=== PATIENT | female | born 1940 | race Two or more races ===

== ENCOUNTER 2017-05-09 22:39 | Emergency (ER) | payer OTHER ==
[~2017-05-09] VITALS: Ht 160 cm; Wt 52.6 kg
[~2017-05-09 22:39] MED LIST: CLONAZEPAM0.25 MG; OMEPRAZOLE20 MG
[2017-05-10] MEDS ORDERED: CIPRO500 MG PO (00:44)
[2017-05-10] MEDS ORDERED: URIN D.S. TABL1 EACH PO (00:45)
== END 2017-05-10 00:58 | disposition home or self-care (01) ==
LOC: ER 22:39
DX: N39.0 Urinary tract infection, site not specified (principal)

== ENCOUNTER 2017-11-20 12:12 | Outpatient (CLI) | payer OTHER ==
[~2017-11-20 12:12] MED LIST changes: +CIPRO500 MG PO; +URIN D.S. TABL1 EACH PO
== END 2017-11-20 14:07 | disposition home or self-care (01) ==
LOC: MAMO-SONO 12:12
DX: C50.411 Malignant neoplasm of upper-outer quadrant of right female breast (principal); N60.11 Diffuse cystic mastopathy of right breast; N60.12 Diffuse cystic mastopathy of left breast

== ENCOUNTER 2018-02-26 12:57 | Outpatient (CLI) | payer OTHER | END 2018-02-26 13:00 | disposition home or self-care (01) | LOC: SONOGRAMA 12:57 | DX: R05 Cough (principal); R31.21 Asymptomatic microscopic hematuria ==

== ENCOUNTER 2018-03-03 10:34 | Outpatient (CLI) | payer OTHER ==
[2018-03-09] MEDS ORDERED: PRILOSEC OTC20 MG PO (09:21)
== END 2018-03-03 10:47 | disposition home or self-care (01) ==
LOC: RAD 10:34
DX: R07.89 Other chest pain (principal)

== ENCOUNTER 2018-03-04 09:32 | Outpatient (CLI) | payer OTHER ==
[2018-03-09] MEDS ORDERED: PRILOSEC OTC20 MG PO (09:21)
== END 2018-03-04 09:41 | disposition home or self-care (01) ==
LOC: EKG 09:32
DX: I10 Essential (primary) hypertension (principal)

== ENCOUNTER 2018-03-10 08:44 | Day surgery (SDC) | payer OTHER ==
[~2018-03-10 08:44] MED LIST changes: +PRILOSEC OTC20 MG PO
== END 2018-03-10 16:15 | disposition home or self-care (01) ==
LOC: CIR.AMB 08:44
DX: R93.89 Abnormal findings on diagnostic imaging of other specified body structures (principal)

== ENCOUNTER 2018-11-25 10:20 | Outpatient (CLI) | payer OTHER | END 2018-11-25 10:24 | disposition home or self-care (01) | LOC: MAMO-SONO 10:20 | DX: C50.411 Malignant neoplasm of upper-outer quadrant of right female breast (principal); N60.11 Diffuse cystic mastopathy of right breast; N60.12 Diffuse cystic mastopathy of left breast ==

== ENCOUNTER 2019-03-18 09:34 | Outpatient (CLI) | payer OTHER | END 2019-03-18 09:35 | disposition home or self-care (01) | LOC: SONOGRAMA 09:34 → MAMO-SONO 10:15 | DX: R31.21 Asymptomatic microscopic hematuria (principal) ==

== ENCOUNTER 2019-11-30 07:40 | Outpatient (CLI) | payer OTHER | END 2019-11-30 07:51 | disposition home or self-care (01) | LOC: MAMO-SONO 07:40 | PROVIDERS: ATTEND Surgery | DX: N60.11 Diffuse cystic mastopathy of right breast (principal); N60.12 Diffuse cystic mastopathy of left breast; C50.411 Malignant neoplasm of upper-outer quadrant of right female breast; N64.59 Other signs and symptoms in breast ==

== ENCOUNTER 2019-12-05 08:25 | Outpatient (CLI) | payer OTHER | END 2019-12-05 10:49 | disposition home or self-care (01) | LOC: MAMO-SONO 08:25 | PROVIDERS: ATTEND Specialist | DX: N28.1 Cyst of kidney, acquired (principal) ==

== ENCOUNTER → 2020-05-25 10:54 | Outpatient (CLI) | payer OTHER | END | disposition home or self-care (01) | LOC: LAB 10:54 | PROVIDERS: ATTEND Radiology Diagnostic Radiology | DX: N20.0 Calculus of kidney (principal) ==

== ENCOUNTER 2020-06-06 08:44 | Outpatient (CLI) | payer OTHER | END 2020-06-06 09:01 | disposition home or self-care (01) | LOC: MRI 08:44 | PROVIDERS: ATTEND Urology | DX: N28.1 Cyst of kidney, acquired (principal); R31.21 Asymptomatic microscopic hematuria; R31.0 Gross hematuria | CPT/HCPCS: 72196; 74182; A9575; 72197; 74183 ==

== ENCOUNTER 2020-12-05 09:04 | Outpatient (CLI) | payer OTHER | END 2020-12-05 09:36 | disposition home or self-care (01) | LOC: MAMO-SONO 09:04 | PROVIDERS: ATTEND Surgery | DX: R92.1 Mammographic calcification found on diagnostic imaging of breast (principal); N60.11 Diffuse cystic mastopathy of right breast; N60.12 Diffuse cystic mastopathy of left breast; C50.411 Malignant neoplasm of upper-outer quadrant of right female breast ==

== ENCOUNTER 2021-08-01 08:13 | Outpatient (CLI) | payer OTHER | END 2021-08-01 08:19 | disposition home or self-care (01) | LOC: SONOGRAMA 08:13 | PROVIDERS: ATTEND Urology | DX: R31.21 Asymptomatic microscopic hematuria (principal) ==

== ENCOUNTER → 2021-09-24 06:24 | Outpatient (CLI) | payer OTHER | END | disposition home or self-care (01) | LOC: LAB 06:24 | PROVIDERS: ATTEND Otolaryngology | DX: R22.1 Localized swelling, mass and lump, neck (principal) ==

== ENCOUNTER 2021-09-26 07:59 | Outpatient (CLI) | payer OTHER | END 2021-09-26 08:09 | disposition home or self-care (01) | LOC: TOM 07:59 | PROVIDERS: ATTEND Otolaryngology | DX: R22.1 Localized swelling, mass and lump, neck (principal) | CPT/HCPCS: 70491; Q9965 ==

== ENCOUNTER 2021-10-24 17:26 | Outpatient (CLI) | payer OTHER | END 2021-10-24 17:28 | disposition home or self-care (01) | LOC: SONOGRAMA 17:26 | PROVIDERS: ATTEND Pathology Anatomic Pathology & Clinical Pathology | DX: R59.0 Localized enlarged lymph nodes (principal) ==

== ENCOUNTER 2021-12-19 11:38 | Outpatient (CLI) | payer OTHER | END 2021-12-19 11:46 | disposition home or self-care (01) | LOC: SONOGRAMA 11:38 | DX: R59.0 Localized enlarged lymph nodes (principal) ==

== ENCOUNTER 2021-12-25 10:28 | Outpatient (CLI) | payer OTHER | END 2021-12-25 10:30 | disposition home or self-care (01) | LOC: RAD 10:28 | PROVIDERS: ATTEND General Practice | DX: K59.00 Constipation, unspecified (principal) ==

== ENCOUNTER 2022-01-01 09:17 | Outpatient (CLI) | payer OTHER | END 2022-01-01 09:24 | disposition home or self-care (01) | LOC: MAMO-SONO 09:17 | PROVIDERS: ATTEND Surgery | DX: C50.411 Malignant neoplasm of upper-outer quadrant of right female breast (principal); N60.12 Diffuse cystic mastopathy of left breast; N60.11 Diffuse cystic mastopathy of right breast ==

== ENCOUNTER 2022-02-13 06:50 | Day surgery (SDC) | payer OTHER ==
[~2022-02-13 06:50] MED LIST changes: +CLORAZEPATE D3.75 MG PO
== END 2022-02-13 14:50 | disposition home or self-care (01) ==
LOC: CIR.AMB 06:50
PROVIDERS: ATTEND Specialist
DX: C83.30 Diffuse large B-cell lymphoma, unspecified site (principal); Z20.822 Contact with and (suspected) exposure to COVID-19

== ENCOUNTER 2023-07-01 09:52 | Outpatient (CLI) | payer OTHER | END 2023-07-01 10:15 | disposition home or self-care (01) | LOC: MAMO-SONO 09:52 | PROVIDERS: ATTEND Surgery | DX: N60.11 Diffuse cystic mastopathy of right breast (principal); N60.12 Diffuse cystic mastopathy of left breast; C50.411 Malignant neoplasm of upper-outer quadrant of right female breast ==

== ENCOUNTER 2023-07-07 08:42 | Outpatient (CLI) | payer OTHER | END 2023-07-07 08:45 | disposition home or self-care (01) | LOC: SONOGRAMA 08:42 | PROVIDERS: ATTEND Urology | DX: R31.21 Asymptomatic microscopic hematuria (principal); R33.9 Retention of urine, unspecified ==

== ENCOUNTER 2023-11-15 17:49 | Emergency (ER) | payer OTHER ==
[~2023-11-15] VITALS: Ht 160 cm; Wt 49.0 kg
[2023-11-15] MEDS ORDERED: NEURONTIN600 M1 PO (18:08)
[2023-11-15] MEDS ORDERED: KETOROLAC TROMETHAMINE 30 MG VIAL IM ONE (18:45)
[2023-11-15] MEDS ORDERED: KETOROLAC TROMETHAMINE 30 MG VIAL ONE (19:00)
[2023-11-15] MEDS ORDERED: KETO10TA2 PO (20:31)
== END 2023-11-15 20:59 | disposition home or self-care (01) ==
LOC: ER 17:51
DX: S42.392A Other fracture of shaft of left humerus, initial encounter for closed fracture (principal); W19.XXXA Unspecified fall, initial encounter; Y93.89 Activity, other specified; Y92.488 Other paved roadways as the place of occurrence of the external cause; Y99.8 Other external cause status; M25.512 Pain in left shoulder
CPT/HCPCS: 29105; 71046; 72170; 73030; 73560; 96372; 99283; J1885

== ENCOUNTER 2024-02-16 05:55 | Day surgery (SDC) | payer OTHER ==
[2024-02-09 08:23] LABS: HEMATOCRIT 41.1 % (36.0-45.00); HEMOGLOBIN 14.1 g/dL (12.0-15.00); MEAN CELL VOLUME 93.2 fL (80.00-100.00); MEAN CORPUSCULAR HEMOGLOBIN 31.9 pg (27.00-32.0); MEAN CORPUSCULAR HGB CONC 34.2 g/dl (32.0-36.0); PLATELET COUNT 190 K/uL (150-450); RED CELL DISTRIBUTION WIDTH 13.4 % (11.5-14.5)
[2024-02-09 08:29] LABS: URINE APPEARANCE Clear; URINE BILIRRUBIN Negative (NEGATIVE); URINE BLOOD Small; URINE COLOR Yellow; URINE GLUCOSE Negative (NEGATIVE); URINE KETONE Negative (NEGATIVE); URINE LEUKOCYTE Trace; URINE NITRATE Negative; URINE PROTEIN Negative (NEGATIVE); URINE UROBILINOGEN 0.2 E.U./dl
[2024-02-09 08:32] LABS: URINE BACTERIA 26.4 uL (0.0-1933); URINE EPITHELIAL CELLS 3.3 uL (0.0-38.8); URINE RBC 57.4 uL (0.0-20.8); URINE WBC 17.4 uL (0.0-23.2)
[2024-02-09 08:42] LABS: INR 0.98; PARTIAL THROMBOPLASTIN TIME 25.6 SECONDS (22.0-34.0); PROTHROMBIN TIME 10.7 SECONDS (9.0-11.5)
[2024-02-09 08:48] LABS: ALBUMIN 3.6 gm/dL (3.4-5.0); BILIRUBIN TOTAL 0.42 mg/dL (0.3-1.2); CALCIUM 10.8 mg/dL (8.5-10.1); CREATININE SERUM 0.61 mg/dL (0.55-1.02); GFR 93.9; GLOBULINA 2.6 G/DL (2.4-3.5); POTASSIUM 3.8 mEq/L (3.5-5.1); TOTAL PROTEIN 6.2 gm/dL (6.4-8.2)
[~2024-02-16 05:55] MED LIST changes: +GRALISE600 MG; +KETO10TA2 PO; +NEURONTIN600 M1 PO
[2024-02-16] MEDS ORDERED: CEFAZOLIN SODIUM 1,000 MG VIAL IV ONE (11:00)
[2024-02-16] MEDS ORDERED: LIDOCAINE HCL 1%/EPINEPHRINE 20ML VIAL IJ ONE ×2 (11:00)
[2024-02-16] MEDS ORDERED: CEFAZOLIN SODIUM 1,000 MG VIAL IV SCH (11:30)
== END 2024-02-16 13:50 | disposition home or self-care (01) ==
LOC: CIR.AMB 05:55
PROVIDERS: ATTEND Specialist
DX: T82.594A Other mechanical complication of infusion catheter, initial encounter (principal); C83.30 Diffuse large B-cell lymphoma, unspecified site

== ENCOUNTER 2024-11-25 09:02 | Outpatient (CLI) | payer OTHER | END 2024-11-25 09:06 | disposition home or self-care (01) | LOC: MRI 09:02 | PROVIDERS: ATTEND Specialist | DX: N85.00 Endometrial hyperplasia, unspecified (principal) | CPT/HCPCS: 72197; Q9965 ==